=== PATIENT | female | born 1970 | race Hispanic/Latino ===

== ENCOUNTER 2022-12-23 07:16 | Observation (INO) | payer BC, OTHER ==
[~2022-12-23] VITALS: Ht 160 cm; Wt 78.0 kg
[2022-12-23] MEDS ORDERED: ASPIRIN 325 MG TAB PO STA (07:18)
[2022-12-23] MEDS ORDERED: FAMOTIDINE 20 MG/2 ML VIAL IV STA (07:27)
[2022-12-23] MEDS ORDERED: NITROGLYCERIN 2% OINT 1 GM PKT TOP ONE (07:30)
[2022-12-23] MEDS ORDERED: NITROGLYCERIN 0.4 MG SUBL SL PRN (07:30)
[2022-12-23] MEDS ORDERED: ACETAMINOPHEN 325 MG TAB PO ONE (07:30)
[2022-12-23 08:07] LABS: BASOPHILS % 0.4 % (0.0-1.0); EOSINOPHILS # (AUTO) 0.2 (0.0-0.4); EOSINOPHILS % 2.5 % (0.0-6.0); HEMOGLOBIN 14.4 g/dL (12.0-16.0); LYMPHOCYTES # (AUTO) 2.6 (1.0-3.2); LYMPHOCYTES % 36.8 % (18.0-39.1); MEAN CORPUSCULAR HEMOGLOBIN 31.6 pg (28-32); MEAN CORPUSCULAR HGB CONC 34.3 g/dL (31-35); MEAN CORPUSCULAR VOLUME 92.1 fL (81-99); MONOCYTES # (AUTO) 0.5 (0.2-0.8); MONOCYTES % 7.6 % (4.4-11.3); NEUTROPHILS # (AUTO) 3.8 (2.1-6.9); NEUTROPHILS % 52.6 % (38.7-80.0); PLATELET COUNT 241 x10e3/uL (140-360); RED BLOOD COUNT 4.56 x10e6/uL (3.6-5.1); RED CELL DISTRIBUTION WIDTH 12.5 % (11.7-14.4)
[2022-12-23 08:22] LABS: ANION GAP 13.9 mmol/L (8-16); CALCIUM 9.1 mg/dL (8.4-10.2); CREATININE, SERUM 0.7 mg/dL (0.57-1.11); POTASSIUM 3.9 mmol/L (3.5-5.1)
[2022-12-23] MEDS ORDERED: ACETAMINOPHEN 325 MG TAB ONE (08:42)
[2022-12-23] MEDS ORDERED: KETOROLAC TROMETHAMINE 30 MG/ML VIAL IV STA (10:23)
[2022-12-23] MEDS ORDERED: SODIUM CHLORIDE FLUSH 10 ML SYR INJ PRN (10:30)
[2022-12-23] MEDS ORDERED: ASPIRIN 81 MG CHEW TAB PO ONE (10:30)
[2022-12-23] MEDS ORDERED: FAMOTIDINE 20 MG/2 ML VIAL IV SCH (11:00)
[2022-12-23 11:28] VITALS: PULSE 74; RESP 20; O2SAT 98
[2022-12-23 12:19] VITALS: BP 108/68; PULSE 75; RESP 20; TEMP 98.6; O2SAT 98
[2022-12-23 12:47] VITALS: BP 108/68; PULSE 75; RESP 20; TEMP 98.6; O2SAT 98
[2022-12-23 13:08] VITALS: BP 108/68; PULSE 75; RESP 20; TEMP 98.6; O2SAT 98
[2022-12-23 13:25] LABS: CREATINE KINASE 82 IU/L (29-168)
[2022-12-23 14:20] LABS: CLARITY,URINE HAZY (CLEAR); COLOR,URINE YELLOW (YELLOW); KETONES,URINE NEGATIVE (NEGATIVE); LEUKOCYTE ESTERASE ,URINE TRACE (NEGATIVE); NITRITE,URINE NEGATIVE (NEGATIVE); PROTEIN,URINE DIPSTICK NEGATIVE (NEGATIVE); URINE UROBILINOGEN 0.2 mg/dL (0.2 - 1)
[2022-12-23 14:21] LABS: AMORPHOUS SEDIMENT,URINE FEW (FEW); BACTERIA,URINE FEW /HPF; EPITHELIAL CELLS,URINE FEW /LPF; MUCUS,URINE FEW (RARE)
[2022-12-23 15:40] VITALS: BP 119/81; PULSE 83; RESP 18; TEMP 98.6; O2SAT 100
[2022-12-23] MEDS ORDERED: FAMOTIDINE 20 MG TAB PO SCH (21:00)
[2022-12-24] MEDS ORDERED: ASPIRIN 81 MG ENTERIC COATED PO SCH (09:00)
== END 2022-12-23 16:24 | disposition home or self-care (01) ==
LOC: ER 07:17 → ERHOLD 10:27 → MED/SURG 11:25
PROVIDERS: ADMIT Internal Medicine; ATTEND Internal Medicine
DX: R07.89 Other chest pain (principal)
CPT/HCPCS: 0223U; 36415; 71046; 80048; 81001; 82550; 84484; 85025; 85379; 93005; 94799; 99284; G0378